=== PATIENT | male | born 1960 | race Caucasian/White ===

== ENCOUNTER 2017-12-15 06:23 | Day surgery (SDC) | payer SELFPAY ==
[2017-12-12 13:41] VITALS: BP 109/71
[2017-12-12 13:57] LABS: BASOPHILS % (AUTO) 0.6 % (0.0-5.0); EOSINOPHILS % (AUTO) 1.2 % (0.0-8.0); LYMPHOCYTES % (AUTO) 29.9 % (21.0-51.0); MEAN CORPUSCULAR HEMOGLOBIN 32.7 pg (27.0-33.0); MEAN CORPUSCULAR HGB CONC 35.2 g/dL (32.0-36.0); MONOCYTES % (AUTO) 7.1 % (3.0-13.0); NEUTROPHILS % (AUTO) 61.2 % (40.0-77.0); PLATELET COUNT (AUTO) 380 K/uL (130-400); RED CELL DISTRIBUTION WIDTH 13.6 % (11.0-15.5); WHITE BLOOD COUNT (AUTO) 7.2 K/uL (4.8-10.8)
[2017-12-12 14:02] LABS: APPEARANCE,URINE Clear (CLEAR); BILIRUBIN,URINE Negative (NEGATIVE); COLOR,URINE Yellow (YELLOW); GLUCOSE, URINE (UA) Negative (NEGATIVE); KETONES,URINE Negative (NEGATIVE); LEUKOCYTE ESTERASE ,URINE Negative (NEGATIVE); NITRATE,URINE Negative (NEGATIVE); OCCULT BLOOD,URINE Negative (NEGATIVE); PH,URINE 6.5 (5.0-8.0); PROTEIN,URINE Negative (NEGATIVE)
[~2017-12-15] VITALS: Ht 175.3 cm; Wt 73.3 kg
[2017-12-15] VITALS (12 sets, daily range): BP systolic 92–117; BP diastolic 52–77
[2017-12-15] MEDS ORDERED: BUPIVACAINE/PF 0.25% 30ML VIAL IJ ONE (06:55)
[2017-12-15] MEDS ORDERED: DIPH-934 PO (07:13)
[2017-12-15] MEDS ORDERED: DIAZ10TA PO (07:13)
[2017-12-15] MEDS ORDERED: MELA1TAB28 PO (07:13)
[2017-12-15] MEDS ORDERED: SIMV10TA2 PO (07:13)
[2017-12-15] MEDS ORDERED: ALPR0.5T PO (07:13)
[2017-12-15] MEDS ORDERED: ASPI-1197 PO (07:13)
[2017-12-15] MEDS ORDERED: [UNRECOGNIZED DRUG - OTHER] PO (07:21)
[2017-12-15] MEDS ORDERED: LACTATED RINGERS 1000ML 1,000 ML IV ONE (08:04)
[2017-12-15] MEDS ORDERED: LIDOCAINE PF 2% 5ML ABBOJECT ONE (08:23)
[2017-12-15] MEDS ORDERED: GLYCOPYRROLATE 0.2 MG/ML 5 ML VIAL ONE (08:23)
[2017-12-15] MEDS ORDERED: MIDAZOLAM HCL 1 MG/ML 2ML VIAL ONE (08:23)
[2017-12-15] MEDS ORDERED: DEXAMETHASONE SOD PHOSPHATE 10MG/ML 1ML VIAL ONE (08:23)
[2017-12-15] MEDS ORDERED: PROPOFOL 10 MG/ML 20ML VIAL IV ONE (08:24)
[2017-12-15] MEDS ORDERED: FENTANYL CITRATE PF 50 MCG/1 ML 5ML AMP IV ONE (08:57)
[2017-12-15] MEDS ORDERED: EPHEDRINE SULFATE 50 MG/ML AMPULE ONE (09:08)
[2017-12-15] MEDS ORDERED: MEPERIDINE-PF 25 MG/ML SYG ONE (10:05)
== END 2017-12-15 11:18 | disposition home or self-care (01) ==
LOC: DAH 06:23
PROVIDERS: ATTEND Surgery
DX: K40.90 Unilateral inguinal hernia, without obstruction or gangrene, not specified as recurrent (principal); I25.2 Old myocardial infarction; J45.909 Unspecified asthma, uncomplicated; F12.920 Cannabis use, unspecified with intoxication, uncomplicated; Z88.0 Allergy status to penicillin; Z88.1 Allergy status to other antibiotic agents; Z98.890 Other specified postprocedural states; Z79.82 Long term (current) use of aspirin; Z79.899 Other long term (current) drug therapy
CPT/HCPCS: 49505; 36415; 81003; 85025; A4450; A4452; C1729; C1781; J1100; J2001; J2175; J2250; J2704; J3010; J3490 ×2; J7120